=== PATIENT | male | born 1950 | race Caucasian/White ===

== ENCOUNTER → 2017-04-02 | Outpatient (CLI) | payer MEDICARE, OTHER ==
[~2017-04-02] MED LIST: ALBUTEROL0.09 MG/A2 INH; ALLOPURINOL300 MG PO; ALTOCOR40 MG PO; APRISO0.375 GM PO; ASACOL400 MG PO; ASPIRIN CHILDRE81 MG; AUGMENTIN 875875 MG PO; BUPROPION HCL150 M1 PO; CARAFATE1 G1 PO; DIOVAN HCT PO; FLOMAX0.4 MG PO; KEFLEX500 MG PO; LEVOFLOXACIN500 MG PO; NKHM; OMEPRAZOLE40 MG PO; URIC ACID; VICODIN ES 7501 TAB PO; VITAMIN D31000 I2 PO; WELLBUTRIN75 MG PO; XANAX0.25 MG PO
== END ==
LOC: MRI 09:26
DX: Z76.89 Persons encountering health services in other specified circumstances (principal)

== ENCOUNTER → 2017-06-11 | Day surgery (SDC) | payer MEDICARE, OTHER ==
[~2017-06-11] VITALS: Ht 172.7 cm; Wt 76.2 kg
[~2017-06-11] MED LIST changes: +FOLIC ACID20 MG PO; +SULFASALAZINE500 M1 PO; +VALSARTAN-HCTZ1 EAC3 PO
--- NOTE | ~2017-06-11 | O ---
[place], [place] OPERATIVE NOTE NAME: MICHAEL BAL UNIT #: [id number] ROOM: DOCTOR: HUGH IRVINYUE BIRTHDATE: [birth year] DOS: 06/11/2017 HISTORY OF PRESENT ILLNESS: A 67-year-old patient who was presented with chief complaint of diarrhea, change in bowel habit, carries ambiguous a history of Crohn's. INDICATIONS: The patient has been started on sulfasalazine and folic acid. ALLERGIES: No known medication. FAMILY HISTORY: Noncontributory. PAST SURGICAL HISTORY: Left inguinal hernia, right inguinal hernia, hip and cardiac catheterization. PAST MEDICAL HISTORY: Crohn disease, hypertension, hyperlipidemia. SOCIAL HISTORY: Nonsmoker, nonalcohol consumer. PROCEDURE: Today's procedure part of investigation is colonoscopy plus terminal ileoscopy and biopsy. PREMEDICATION: Versed and Diprivan. SCOPE: Olympus forward-viewing colonoscope 10L video. REPORT: After putting the patient in the left lateral position and after application of lubricant to the scope, the scope was introduced; thereafter, under direct visualization, advanced through the length of colon without difficulty. Base of the cecum explored, appendiceal orifice identified, and ileocecal valve was defined. Terminal ileoscopy was performed and the scope was advanced approximately 14 cm. No evidence of Crohn's was identified. Biopsies from terminal ileum was obtained. Air was suctioned out. Diverticulosis in the right colon at the base of the cecum, left-sided colon all was identified. No acute ulceration pathology or mucosal distortion was seen. Air was suctioned out. The patient was extubated, tolerated procedure well. IMPRESSION: Diverticulosis, status post terminal ileoscopy, status post biopsy of terminal ileum without evidence of Crohn disease. PLAN AND DISCUSSION: Since he is responding to sulfasalazine and folic acid, we are going to continue with the same therapy and observation and clinical reassessment as outpatient. The patient is going to continue with sulfasalazine 500 mg 2 tablets b.i.d., folic acid 1 mg daily. Awaiting biopsy results of the terminal ileum for submucosal pathology; however, it would be unlikely to find any acute pathology, and we will reassess. [place], [place] OPERATIVE NOTE NAME: MICHAEL BAL UNIT #: [id number] ROOM: DOCTOR: HUGH IRVIN,YUE BIRTHDATE: 46 YUE REESE MD CM:OPRECORD:OPERATIVE NOTE 9 5 YUE REESE MD 06/11/17825 interface
[2017-06-11 06:54] VITALS: BP 129/86
[2017-06-11 07:55] VITALS: BP 141/87
[2017-06-11 08:10] VITALS: BP 160/82
[2017-06-11 08:25] VITALS: BP 167/90
== END | disposition home or self-care (01) ==
LOC: SDC 06-06 12:30
DX: K57.30 Diverticulosis of large intestine without perforation or abscess without bleeding (principal); I10 Essential (primary) hypertension; E78.5 Hyperlipidemia, unspecified; K21.9 Gastro-esophageal reflux disease without esophagitis; F41.9 Anxiety disorder, unspecified; F32.9 Major depressive disorder, single episode, unspecified; M10.9 Gout, unspecified; Z96.641 Presence of right artificial hip joint; Z87.891 Personal history of nicotine dependence; Z98.890 Other specified postprocedural states; Z83.3 Family history of diabetes mellitus; Z82.5 Family history of asthma and other chronic lower respiratory diseases

== ENCOUNTER → 2017-09-27 | Outpatient (CLI) | payer MEDICARE, OTHER | END | disposition home or self-care (01) | LOC: US 10:31 | DX: N32.89 Other specified disorders of bladder (principal) ==

== ENCOUNTER → 2018-10-28 | Outpatient (CLI) | payer MEDICARE ==
[2018-10-28 10:29] LABS: BASO % 0.5 % (0.0-1.0); EOS # 0.1 10*3/uL (0.0-0.4); EOS % 1.4 % (1.0-4.0); HEMATOCRIT 43.7 % (42.0-52.0); HEMOGLOBIN 14.5 g/dl (14.0-18.0); LYMPH # 1.1 10*3/uL (1.3-4.4); LYMPH % 25.9 % (27.0-41.0); MEAN CELL VOLUME 95.4 fl (80.0-94.0); MEAN CORPUSCULAR HGB 31.7 pg (27.0-31.0); MEAN CORPUSCULAR HGB CONC 33.2 g/dl (33.0-37.0); MEAN PLATELET VOLUME 9.1 fl (9.6-12.3); MONO # 0.6 10*3/uL (0.1-1.0); MONO % 12.8 % (3.0-9.0); NEUT # 2.6 10*3/uL (2.3-7.9); NEUT % 59.2 % (47.0-73.0); PLATELET COUNT AUTOMATED 171 10*3/uL (130-400); RED BLOOD COUNT 4.58 10*6/uL (4.50-5.90); RED CELL DISTRI WIDTH 13.2 % (0-14.5); WHITE BLOOD COUNT 4.4 10*3/uL (4.8-10.8)
[2018-10-28 10:59] LABS: ALBUMIN 3.6 gm/dl (3.1-4.5); ALKALINE PHOSPHATASE 78 U/L (45-117); BUN 13 mg/dl (7-24); CHLORIDE 105 mmol/L (98-107); CREATININE 1.13 mg/dL (0.70-1.30); POTASSIUM 3.7 mmol/L (3.5-5.1); SGOT/AST 19 IU/L (3-35); SGPT/ALT 22 U/L (12-78); SODIUM 141 mmol/L (136-145); TOTAL PROTEIN 7.3 gm/dL (6.4-8.2)
[2018-10-29 08:11] LABS: PROSTATE SPECIFIC AG, SERUM 0.5 ng/mL (0.0-4.0)
[2018-10-29 09:13] LABS: PROSTATE SPECIFIC AG FREE 0.24 ng/mL
== END | disposition home or self-care (01) ==
LOC: LAB 10:10
PROVIDERS: Urology
DX: I10 Essential (primary) hypertension (principal); D40.0 Neoplasm of uncertain behavior of prostate

== ENCOUNTER → 2020-04-25 | Outpatient (CLI) | payer MEDICARE | END | disposition home or self-care (01) | LOC: US 09:49 | DX: R09.89 Other specified symptoms and signs involving the circulatory and respiratory systems (principal) ==

== ENCOUNTER → 2020-12-22 | Outpatient (CLI) | payer MEDICARE ==
[2020-12-22 10:48] LABS: BASO % 0.5 % (0.0-1.0); EOS # 0.2 10*3/uL (0.0-0.4); EOS % 2.4 % (1.0-4.0); HEMATOCRIT 45.9 % (42.0-52.0); LYMPH # 1.6 10*3/uL (1.3-4.4); LYMPH % 21.6 % (27.0-41.0); MEAN CELL VOLUME 96.6 fl (80.0-94.0); MEAN CORPUSCULAR HGB 31.2 pg (27.0-31.0); MEAN CORPUSCULAR HGB CONC 32.2 g/dl (33.0-37.0); MEAN PLATELET VOLUME 9.3 fl (9.6-12.3); MONO # 0.5 10*3/uL (0.1-1.0); MONO % 5.9 % (3.0-9.0); NEUT # 5.3 10*3/uL (2.3-7.9); NEUT % 69.3 % (47.0-73.0); PLATELET COUNT AUTOMATED 224 10*3/uL (130-400); RED BLOOD COUNT 4.75 10*6/uL (4.50-5.90); RED CELL DISTRI WIDTH 12.9 % (0-14.5); WHITE BLOOD COUNT 7.6 10*3/uL (4.8-10.8)
== END | disposition home or self-care (01) ==
LOC: LAB 10:28
PROVIDERS: ATTEND Internal Medicine Gastroenterology
DX: I10 Essential (primary) hypertension (principal); K50.90 Crohn's disease, unspecified, without complications

== ENCOUNTER → 2021-11-12 | Outpatient (CLI) | payer MEDICARE | END | disposition home or self-care (01) | LOC: CARD 08:52 | PROVIDERS: ATTEND Nurse Practitioner Primary Care | DX: I10 Essential (primary) hypertension (principal); I49.1 Atrial premature depolarization ==

== ENCOUNTER → 2022-01-31 | Outpatient (CLI) | payer MEDICARE | END | disposition home or self-care (01) | LOC: CARD 01-23 07:30 | PROVIDERS: ATTEND Internal Medicine Cardiovascular Disease | DX: R00.2 Palpitations (principal) ==

== ENCOUNTER → 2023-09-15 | Outpatient (CLI) | payer MEDICARE | END | disposition home or self-care (01) | LOC: CT 01:43 | PROVIDERS: ATTEND Nurse Practitioner Primary Care | DX: I65.23 Occlusion and stenosis of bilateral carotid arteries (principal); K57.30 Diverticulosis of large intestine without perforation or abscess without bleeding; M51.36 Other intervertebral disc degeneration, lumbar region; I70.0 Atherosclerosis of aorta; I70.8 Atherosclerosis of other arteries; K86.89 Other specified diseases of pancreas ==

== ENCOUNTER → 2023-12-16 | Outpatient (CLI) | payer MEDICARE | END | disposition home or self-care (01) | LOC: RESCLI 14:23 | PROVIDERS: ATTEND Internal Medicine | DX: J44.9 Chronic obstructive pulmonary disease, unspecified (principal); I10 Essential (primary) hypertension; K21.9 Gastro-esophageal reflux disease without esophagitis; M10.9 Gout, unspecified; D50.8 Other iron deficiency anemias; N40.1 Benign prostatic hyperplasia with lower urinary tract symptoms; E78.00 Pure hypercholesterolemia, unspecified; Z79.899 Other long term (current) drug therapy; Z88.8 Allergy status to other drugs, medicaments and biological substances; Z98.890 Other specified postprocedural states ==

== ENCOUNTER → 2024-04-21 | Outpatient (CLI) | payer MEDICARE | END | disposition home or self-care (01) | LOC: CARD 10:45 | PROVIDERS: ATTEND Nurse Practitioner Primary Care | DX: I10 Essential (primary) hypertension (principal) ==

== ENCOUNTER → 2024-06-24 | Outpatient (CLI) | payer MEDICARE ==
[2024-06-24 10:31] LABS: BASO % 0.4 % (0.0-1.0); EOS # 0.1 10*3/uL (0.0-0.4); EOS % 1.9 % (1.0-4.0); HEMATOCRIT 42.5 % (42.0-52.0); LYMPH # 1.5 10*3/uL (1.3-4.4); LYMPH % 20.2 % (27.0-41.0); MEAN CELL VOLUME 94.9 fl (80.0-94.0); MEAN CORPUSCULAR HGB 31.5 pg (27.0-31.0); MEAN CORPUSCULAR HGB CONC 33.2 g/dl (33.0-37.0); MEAN PLATELET VOLUME 9.2 fl (9.6-12.3); MONO # 0.5 10*3/uL (0.1-1.0); MONO % 6.9 % (3.0-9.0); NEUT # 5.3 10*3/uL (2.3-7.9); NEUT % 70.3 % (47.0-73.0); PLATELET COUNT AUTOMATED 187 10*3/uL (130-400); RED BLOOD COUNT 4.48 10*6/uL (4.50-5.90); RED CELL DISTRI WIDTH 12.9 % (0-14.5); WHITE BLOOD COUNT 7.5 10*3/uL (4.8-10.8)
[2024-06-24 10:58] LABS: BUN 12 mg/dl (9-23); CHLORIDE 104 mmol/L (98-107); POTASSIUM 3.8 mmol/L (3.4-5.1)
[2024-06-24 11:04] LABS: URIC ACID 4.4 mg/dL (3.7-9.2)
== END | disposition home or self-care (01) ==
LOC: LAB 10:10
PROVIDERS: Nurse Practitioner Primary Care; ATTEND Surgery
DX: Z01.818 Encounter for other preprocedural examination (principal); E03.9 Hypothyroidism, unspecified; D50.8 Other iron deficiency anemias; M10.9 Gout, unspecified